=== PATIENT | male | born 1995 | race Caucasian/White ===

== ENCOUNTER → 2017-01-16 | Outpatient (CLI) | payer BC ==
--- NOTE | 2017-01-16 16:15 | ECHOCARDIOGRAM REPORT ---
*NOTICE TO RECEIVING LIBERTARIAN AGENCY This information is strictly Confidential and protected under [place] law. [place] law prohibits you from making any further disclosure of this information unless further disclosure is expressly permitted by the written consent of the person to whom it pertains or is authorized by law. A general authorization for the release of medical or other information is not sufficient for this purpose. Hospital accepts no responsibility if the information is made available to any other person, INCLUDING THE PATIENT. Interpretation Summary * Name: YON ALAS Study Date: 01/16/2017 01:09 PM * Patient Location: [facility] * : 1995 (M/d/yyyy) Gender: Male Height: 68 in * Age: 21 yrs Ethnicity: CA Weight: 125 lb * Ordering Physician: Isaura Jc * Referring Physician: Isaura Jc PA-C * Performed By: Agueda Jimenez RDCS * * Reason For Study: Chest pain, abnormal EKG * BSA: 1.7 m2 * -- Conclusions -- * Left ventricular systolic function is normal. * No regional wall motion abnormalities noted. * Ejection Fraction = 60-65%. * No significant valvular pathology. Procedure Details * A complete two-dimensional transthoracic echocardiogram was performed (2D, M-mode, Doppler and color flow Doppler). Left Ventricle * The left ventricle is normal in size. * There is normal left ventricular wall thickness. * Ejection Fraction = 60-65%. * Left ventricular systolic function is normal. * No regional wall motion abnormalities noted. Right Ventricle * The right ventricle is normal size. * The right ventricular systolic function is normal as assessed by tricuspid annular plane systolic excursion (TAPSE) (normal >1.5 cm). Atria * The left atrial size is normal. * Right atrial size is normal. * No ASD detected; PFO is not assessed. Mitral Valve * The mitral valve anatomy is normal. * There is no mitral valve stenosis. * There is no mitral regurgitation noted. Tricuspid Valve * The tricuspid valve anatomy is normal. * There is no tricuspid stenosis. * Significant tricuspid regurgitation is absent. Aortic Valve * The aortic valve is normal in structure and function. * No hemodynamically significant valvular aortic stenosis. * No aortic regurgitation is present. Pulmonic Valve * The pulmonary valve is not well seen, but the Doppler examination is normal without significant regurgitation or stenosis. Great Vessels * The aortic root is normal size. * The pulmonary artery is not well visualized, but is probably normal size. Pericardium/Pleural * There is no pericardial effusion. Great Vessels * Normal inferior vena cava size and collapsability with sniff indicates a normal right atrial pressure of 3 mmHg MMode 2D Measurements and Calculations IVSd 0.80 cm IVSs 0.85 cm LVIDd 4.2 cm LVIDs 3.0 cm LVPWd 0.72 cm LVPWs 1.3 cm IVS/LVPW 1.1 FS 29.3 % EDV(Teich) 79.1 ml ESV(Teich) 34.3 ml EF(Teich) 56.6 % EDV(cubed) 74.7 ml ESV(cubed) 26.3 ml EF(cubed) 64.7 % % IVS thick 6.9 % % LVPW thick 76.2 % LV mass(C)d 95.4 grams LV mass(C)dI 57.0 grams/m\S\2 LV mass(C)s 89.5 grams LV mass(C)sI 53.5 grams/m\S\2 SV(Teich) 44.8 ml SI(Teich) 26.7 ml/m\S\2 SV(cubed) 48.3 ml SI(cubed) 28.9 ml/m\S\2 Ao root diam 2.3 cm Ao root area 4.3 cm\S\2 ACS 1.9 cm LA dimension 2.7 cm LA/Ao 1.2 LVAd ap4 24.8 cm\S\2 LVLd ap4 8.1 cm EDV(MOD-sp4) 64.3 ml EDV(sp4-el) 64.3 ml LVAs ap4 13.8 cm\S\2 LVLs ap4 6.6 cm ESV(MOD-sp4) 24.6 ml ESV(sp4-el) 24.3 ml EF(MOD-sp4) 61.8 % EF(sp4-el) 62.3 % LVAd ap2 24.9 cm\S\2 LVLd ap2 8.3 cm EDV(MOD-sp2) 62.7 ml EDV(sp2-el) 63.3 ml LVAs ap2 14.0 cm\S\2 LVLs ap2 7.5 cm ESV(MOD-sp2) 22.4 ml ESV(sp2-el) 22.2 ml EF(MOD-sp2) 64.3 % EF(sp2-el) 65.0 % LVLd %diff 2.9 % EDV(MOD-bp) 65.3 ml LVLs %diff 11.5 % ESV(MOD-bp) 24.9 ml EF(MOD-bp) 61.8 % SV(MOD-sp4) 39.8 ml SI(MOD-sp4) 23.8 ml/m\S\2 SV(MOD-sp2) 40.3 ml SI(MOD-sp2) 24.1 ml/m\S\2 SV(MOD-bp) 40.4 ml SI(MOD-bp) 24.1 ml/m\S\2 SV(sp4-el) 40.0 ml SI(sp4-el) 23.9 ml/m\S\2 SV(sp2-el) 41.2 ml SI(sp2-el) 24.6 ml/m\S\2 Doppler Measurements and Calculations MV E max macey 96.0 cm/sec MV A max macey 51.8 cm/sec MV E/A 1.9 MV dec time 0.25 sec Ao V2 max 102.7 cm/sec Ao max PG 4.2 mmHg Ao max PG (full) 0.49 mmHg LV V1 max PG 3.7 mmHg LV V1 max 96.5 cm/sec PA V2 max 106.1 cm/sec PA max PG 4.5 mmHg PI max macey 109.6 cm/sec PI max PG 4.8 mmHg PI dec slope 123.6 cm/sec\S\2 PI P1/2t 259.6 msec
== END | disposition home or self-care (01) ==
LOC: C.CPL 12:57
PROVIDERS: ATTEND Physician Assistant
DX: R07.9 Chest pain, unspecified (principal); R00.2 Palpitations; R94.31 Abnormal electrocardiogram [ECG] [EKG]